=== PATIENT | female | born 1995 ===

== ENCOUNTER 2017-01-12 19:02 | Emergency (ER) | payer OTHER ==
[2017-01-12 19:10] VITALS: RESP 16
[2017-01-12 19:16] VITALS: BP 127/65; PULSE 77; TEMP 98.3; O2SAT 99
[2017-01-12 19:56] LABS: RBC URINE 3 /hpf (0-3); URINE BILIRUBIN NEGATIVE (NEGATIVE); URINE BLOOD NEGATIVE (NEGATIVE); URINE COLOR YELLOW (YELLOW); URINE GLUCOSE (UA) NEG (Normal); URINE KETONE NEGATIVE (NEGATIVE); URINE LEUKOCYTE ESTERASE NEG Leu/uL (Negative); URINE PROTEIN NEGATIVE (NEGATIVE); URINE UROBILINOGEN 0.2-1.0 mg/dL (0.2-1.0); WBC URINE 1 /hpf (0-5)
[2017-01-12 20:02] LABS: BASO # 0.1 K/uL (0.0-0.2); EOS # 0.2 K/uL (0.0-0.7); EOS % 1.8 % (0.0-4.0); HEMATOCRIT 37.5 % (34.0-47.0); LYMPH # 3.7 K/uL (1.0-4.3); LYMPH % 38.3 % (20.0-40.0); MEAN CORPUSCULAR HEMOGLOBIN 26.3 pg (27.0-31.0); MEAN CORPUSCULAR HGB CONC 31.7 g/dL (33.0-37.0); MEAN PLATELET VOLUME 7.8 fl (7.2-11.7); MONO # 0.7 K/uL (0.0-0.8); MONO % 7.3 % (0.0-10.0); NEUT % 51.6 % (50.0-75.0); RED CELL DISTRIBUTION WIDTH 14.4 % (11.5-14.5); WHITE BLOOD COUNT 9.7 K/uL (4.8-10.8)
[2017-01-12] MEDS: Sodium Chloride 0.9% 1,000 ML IV STA (20:07)
[2017-01-12 20:13] LABS: ALB/GLOB RATIO 1.3 (1.0-2.1); ALKALINE PHOSPHATASE 75 U/L (38-126); ALT/SGPT 34 U/L (9-52); AST/SGOT 53 U/L (14-36); BILIRUBIN,TOTAL 0.2 mg/dl (0.2-1.3); BLOOD UREA NITROGEN 15 mg/dl (7-17); CALCIUM 9.4 mg/dL (8.4-10.2); CARBON DIOXIDE 28 mmol/L (22-30); CHLORIDE 103 mmol/L (98-107); GFR AFRICAN-AMERICAN > 60; GLUCOSE,RANDOM 90 mg/dL (65-105); POTASSIUM 4.7 MMOL/L (3.6-5.0); SODIUM 141 mmol/l (132-148); TOTAL PROTEIN 7.7 G/DL (6.3-8.2)
--- NOTE | 2017-01-12 23:41 | ED PDOC ---
HPI: Abdomen Time Seen by Provider: 01/12/17 19:32 Chief Complaint (Nursing): Abdominal Pain Chief Complaint (Provider): pelvic pain, headache History Per: Patient History/Exam Limitations: no limitations Current Symptoms Are (Timing): Still Present Severity: Mild Quality Of Discomfort: Cramping Associated Symptoms: Nausea. denies: Diarrhea, Loss Of Appetite, Urinary Symptoms Last Bowel Movement: Today Additional Complaint(s): 22yo female c/o left pelvic pain and headache ongoing and worsening since wednesday. Denies fever, neck pain, rash or weakness. Denies possibility of being . Denies vaginal discharge. Taking tylenol w some relief. Past Medical History Reviewed: Historical Data, Nursing Documentation, Vital Signs Vital Signs: Last Vital Signs Temp 98.3 F 01/12/17 19:08 Pulse 77 01/12/17 19:08 Resp 16 01/12/17 19:08 BP 127/65 01/12/17 19:08 Pulse Ox 99 01/12/17 19:08 - Medical History PMH: Asthma, Hypercholesterolemia - Surgical History Surgical History: Tonsillectomy - Family History Family History: States: Unknown Family Hx - Living Arrangements Living Arrangements: With Family - Social History Current smoker - smoking cessation education provided: No - Immunization History Hx Tetanus Toxoid Vaccination: No Hx Influenza Vaccination: Yes Hx Pneumococcal Vaccination: No - Home Medications Home Medications: Ambulatory Orders Medication Instructions Recorded Naproxen [Naprosyn] 500 mg PO Q12H #20 tab 10/13/16 - Allergies Allergies/Adverse Reactions: Allergies Allergy/AdvReac Type Severity Reaction Status Date / Time No Known Allergies Allergy Verified 01/12/17 19:08 Review of Systems Constitutional: Negative for: Fever Cardiovascular: Negative for: Chest Pain, Palpitations Respiratory: Negative for: Cough, Shortness of Breath Gastrointestinal: Negative for: Nausea, Vomiting Genitourinary Female: Positive for: Vaginal Bleeding, Pelvic Pain. Negative for : Dysuria, Frequency Musculoskeletal: Negative for: Shoulder Pain, Back Pain, Leg Pain Skin: Negative for: Rash, Lesions Neurological: Negative for: Weakness, Numbness, Dizziness Physical Exam - Reviewed Nursing Documentation Reviewed: Yes Vital Signs Reviewed: Yes - Physical Exam Appears: Positive for: Well, Non-toxic, No Acute Distress Head Exam: Positive for: ATRAUMATIC, NORMAL INSPECTION, NORMOCEPHALIC Skin: Positive for: Normal Color, Warm, DRY Eye Exam: Positive for: EOMI, Normal appearance, PERRL ENT: Positive for: Normal ENT Inspection Neck: Positive for: Normal, Painless ROM Cardiovascular/Chest: Positive for: Regular Rate, Rhythm Respiratory: Positive for: CNT, Normal Breath Sounds Gastrointestinal/Abdominal: Positive for: Bowel Sounds, Soft, Tenderness (mild LLQ tenderness) Back: Positive for: Normal Inspection Extremity: Positive for: Normal ROM Neurologic/Psych: Positive for: Alert, Oriented - Laboratory Results Result Diagrams: 01/12/17 19:55 01/12/17 19:55 - ECG O2 Sat by Pulse Oximetry: 99 Medical Decision Making Medical Decision Making: Orders placed and therapeutics ordered. US pelvis ordered. Preg neg. Patient was aware needed to go to US, requested IV be taken out of arm per RN as "it was freaking her out". Per RN when he came back to room after removing IV the patient had left, eloped. Vitals were stable on last eval. Disposition - Clinical Impression Clinical Impression: Pelvic pain - Patient ED Disposition Is Patient to be Admitted: No - Disposition Disposition: Eloped Disposition Time: 19:30 Condition: STABLE
== END 2017-01-12 19:55 | disposition left against medical advice (07) ==
LOC: H.ER 19:02
DX: R10.2 Pelvic and perineal pain (principal); R11.0 Nausea; E78.00 Pure hypercholesterolemia, unspecified; J45.909 Unspecified asthma, uncomplicated; R51 Headache

== ENCOUNTER 2017-09-20 18:36 | Emergency (ER) | payer OTHER ==
[2017-09-20 19:08] VITALS: BP 130/85; PULSE 93; RESP 18; TEMP 98.8; O2SAT 99
[2017-09-20 22:14] LABS: BASO # 0.1 K/uL (0.0-0.2); BASO % 0.8 % (0.0-2.0); EOS # 0.3 K/uL (0.0-0.7); EOS % 2.1 % (0.0-4.0); HEMOGLOBIN 12.7 g/dL (12.0-16.0); LYMPH # 3.8 K/uL (1.0-4.3); LYMPH % 30.6 % (20.0-40.0); MEAN CELL VOLUME 84.1 fl (81.0-99.0); MEAN CORPUSCULAR HEMOGLOBIN 26.2 pg (27.0-31.0); MEAN CORPUSCULAR HGB CONC 31.2 g/dL (33.0-37.0); MEAN PLATELET VOLUME 8.3 fl (7.2-11.7); MONO # 0.9 K/uL (0.0-0.8); MONO % 7.4 % (0.0-10.0); NEUT # 7.3 K/uL (1.8-7.0); NEUT % 59.1 % (50.0-75.0); RBC 4.84 Mil/uL (3.80-5.20); RED CELL DISTRIBUTION WIDTH 14.6 % (11.5-14.5); WHITE BLOOD COUNT 12.4 K/uL (4.8-10.8)
[2017-09-20 22:28] LABS: CALCIUM 9.5 mg/dL (8.4-10.2); GFR AFRICAN-AMERICAN > 60; GFR NON-AFRICAN AMERICAN > 60
[2017-09-20 22:29] LABS: ALB/GLOB RATIO 1.2 (1.0-2.1); ALBUMIN 4.3 g/dL (3.5-5.0); ALT/SGPT 28 U/L (9-52); AST/SGOT 39 U/L (14-36); BLOOD UREA NITROGEN 12 mg/dl (7-17)
--- NOTE | 2017-09-20 22:32 | ED PDOC ---
HPI: Female Pain Time Seen by Provider: 09/20/17 21:26 Chief Complaint (Nursing): Abdominal Pain Chief Complaint (Provider): Abdominal Pain/Vaginal discomfort History Per: Patient History/Exam Limitations: no limitations Onset/Duration Of Symptoms: Days (x2) Current Symptoms Are (Timing): Still Present Additional Complaint(s): Marleny Burgos is a 22 year old female with a history of PCOS that presents to the ED with a chief complaint of left lower quadrant abdominal pain and vaginal discomfort that she has been experiencing for the past two days. Patient reports associated poor appetite and nausea, but denies any fever, cough , shortness of breath, chest pain, vomiting, diarrhea, urinary symptoms, or vaginal discharge. She states that her menstrual period is late, but that she has a history of irregular menstrual cycles. Past Medical History Reviewed: Historical Data, Nursing Documentation, Vital Signs Vital Signs: Last Vital Signs Temp 98.8 F 09/20/17 19:06 Pulse 93 H 09/20/17 19:06 Resp 18 09/20/17 19:06 BP 130/85 09/20/17 19:06 Pulse Ox 99 09/20/17 19:06 - Medical History PMH: Asthma, Hypercholesterolemia Other PMH: PCOS - Surgical History Surgical History: No Surg Hx, Tonsillectomy - Family History Family History: States: Unknown Family Hx - Social History Current smoker - smoking cessation education provided: No Alcohol: None Drugs: Denies - Immunization History Hx Tetanus Toxoid Vaccination: No Hx Influenza Vaccination: Yes Hx Pneumococcal Vaccination: No - Home Medications Home Medications: Ambulatory Orders Medication Instructions Recorded Naproxen [Naprosyn] 500 mg PO Q12H #20 tab 10/13/16 - Allergies Allergies/Adverse Reactions: Allergies Allergy/AdvReac Type Severity Reaction Status Date / Time No Known Allergies Allergy Verified 09/20/17 19:05 Review of Systems Constitutional: Positive for: Other (Decreased appetite). Negative for: Fever Cardiovascular: Negative for: Chest Pain Respiratory: Negative for: Cough, Shortness of Breath Gastrointestinal: Positive for: Nausea, Abdominal Pain. Negative for: Vomiting , Diarrhea Genitourinary Female: Positive for: Other (Vaginal irritation). Negative for: Dysuria, Frequency, Incontinence, Hematuria, Vaginal Discharge Physical Exam - Reviewed Nursing Documentation Reviewed: Yes Vital Signs Reviewed: Yes - Physical Exam Appears: Positive for: Non-toxic, No Acute Distress Head Exam: Positive for: ATRAUMATIC, NORMOCEPHALIC Skin: Positive for: Normal Color, Warm Eye Exam: Positive for: Normal appearance, EOMI, PERRL Neck: Positive for: Normal, Supple Cardiovascular/Chest: Positive for: Regular Rate, Rhythm. Negative for: Murmur Respiratory: Positive for: Normal Breath Sounds. Negative for: Wheezing Gastrointestinal/Abdominal: Positive for: Tenderness (mild LLQ TTP). Negative for: Normal Exam Back: Positive for: Normal Inspection. Negative for: L CVA Tenderness, R CVA Tenderness Extremity: Positive for: Normal ROM. Negative for: Deformity, Swelling Neurologic/Psych: Positive for: Alert, Oriented. Negative for: Motor/Sensory Deficits - Laboratory Results Result Diagrams: 09/20/17 22:10 09/20/17 22:10 - ECG O2 Sat by Pulse Oximetry: 99 (RA) Pulse Ox Interpretation: Normal Medical Decision Making Medical Decision Making: Impression: 22 year old female with LLQ pain in setting of known PCOS Plan: * US Transvaginal * Urinalysis * Urine dip * Urine preg * Reevaluation 2320 US FINDINGS Uterus/cervix: The uterus measures 6.2 x 2.5 x 3.1 cm and is normal in contour and echotexture. Normal endometrial stripe thickness measuring 6 mm. No myometrial mass. Right ovary: Unremarkable measuring 2.0 x 1.6 x 2.5 cm. No mass. Normal blood flow. Left ovary: Unremarkable measuring 2.6 x 1.9 x 2.9 cm. No mass. Normal blood flow. Free fluid: No free fluid. Bladder: Empty bladder which cannot be evaluated with this probe. IMPRESSION: Unremarkable pelvic ultrasound. 2340 Labs reviewed: no clinically significant abnormality Labs and US findings explained to patient, who will follow up with her rn interventional later this week. Dx: abdominal pain Condition: stable Scribe Attestation: Documented by Joann Pizano and Rayne Martinez, acting as a scribe for Tushar Adams MD. Provider Scribe Attestation: All medical record entries made by the Scribe were at my direction and personally dictated by me. I have reviewed the chart and agree that the record accurately reflects my personal performance of the history, physical exam, medical decision making, and the department course for this patient. I have also personally directed, reviewed, and agree with the discharge instructions and disposition. Disposition - Clinical Impression Clinical Impression: Abdominal pain - Disposition Disposition: Routine/Home Disposition Time: 23:40 Condition: STABLE Instructions: Abdominal Pain (ED) Forms: [facility] (Kiswahili)
[2017-09-20 22:39] LABS: SQUAMOUS EPITHIAL 5 /hpf (0-5); URINE BACTERIA RARE (<OCC); URINE BILIRUBIN NEGATIVE (NEGATIVE); URINE BLOOD NEGATIVE (NEGATIVE); URINE CLARITY SLIGHTY-CLOUDY (Clear); URINE COLOR YELLOW (YELLOW); URINE GLUCOSE (UA) NEG (Normal); URINE LEUKOCYTE ESTERASE NEG Leu/uL (Negative); URINE NITRATE NEGATIVE (NEGATIVE); URINE PROTEIN NEGATIVE (NEGATIVE)
--- NOTE | 2017-09-20 23:20 | US ---
EXAM: US Pelvis, Transvaginal CLINICAL HISTORY: 22 years old, female; Pain; Pelvic pain; Additional info: Llq pain HX pcos TECHNIQUE: Real-time transvaginal pelvic ultrasound (complete) with image documentation. Transvaginal imaging was used for better evaluation of the endometrium and adnexa. COMPARISON: No relevant prior studies available. FINDINGS: Uterus/cervix: The uterus measures 6.2 x 2.5 x 3.1 cm and is normal in contour and echotexture. Normal endometrial stripe thickness measuring 6 mm. No myometrial mass. Right ovary: Unremarkable measuring 2.0 x 1.6 x 2.5 cm. No mass. Normal blood flow. Left ovary: Unremarkable measuring 2.6 x 1.9 x 2.9 cm. No mass. Normal blood flow. Free fluid: No free fluid. Bladder: Empty bladder which cannot be evaluated with this probe. IMPRESSION: Unremarkable pelvic ultrasound.
== END 2017-09-21 00:11 | disposition home or self-care (01) ==
LOC: H.ER 18:36
DX: R10.32 Left lower quadrant pain (principal); E28.2 Polycystic ovarian syndrome; E78.00 Pure hypercholesterolemia, unspecified; J45.909 Unspecified asthma, uncomplicated

== ENCOUNTER 2018-07-27 16:42 | Emergency (ER) | payer MEDICAID, OTHER ==
[2018-07-27 16:49] VITALS: BP 121/77; PULSE 91; RESP 16; TEMP 98; O2SAT 100
[2018-07-27 18:12] LABS: BASO # 0.1 K/uL (0.0-0.2); BASO % 0.7 % (0.0-2.0); EOS # 0.4 K/uL (0.0-0.7); EOS % 3.6 % (0.0-4.0); HEMOGLOBIN 12.6 g/dL (12.0-16.0); LYMPH # 3.9 K/uL (1.0-4.3); MEAN CELL VOLUME 83.2 fl (81.0-99.0); MEAN CORPUSCULAR HEMOGLOBIN 26.7 pg (27.0-31.0); MEAN CORPUSCULAR HGB CONC 32.1 g/dL (33.0-37.0); MONO # 0.9 K/uL (0.0-0.8); MONO % 7.8 % (0.0-10.0); NEUT # 5.8 K/uL (1.8-7.0); NEUT % 52.9 % (50.0-75.0); RBC 4.73 Mil/uL (3.80-5.20)
[2018-07-27 18:14] LABS: ALB/GLOB RATIO 1.3 (1.0-2.1); ALBUMIN 4.5 g/dL (3.5-5.0); ALT/SGPT 227 U/L (9-52); AST/SGOT 138 U/L (14-36); BLOOD UREA NITROGEN 11 mg/dl (7-17); CALCIUM 9.6 mg/dL (8.4-10.2); GFR NON-AFRICAN AMERICAN > 60
--- NOTE | 2018-07-27 18:36 | US ---
Date of service: 07/27/2018 HISTORY: Pelvic pain COMPARISON: None available. TECHNIQUE: Transvaginal pelvic ultrasound was performed. FINDINGS: UTERUS: Measures 7.1 x 3.8 x 3.1 cm. Anteverted, normal in size and appearance. No fibroid or other mass lesion seen. ENDOMETRIUM: Measures 6.0 mm in diameter. Normal in appearance. CERVIX: No cervical abnormality identified. RIGHT OVARY: Measures 3.1 x 3.6 x 2.7 cm. No solid mass. Normal flow. LEFT OVARY: Measures 3.0 x 2.9 x 1.6 cm. No solid mass. Normal flow. FREE FLUID: There is free fluid in the cul de sac, likely physiologic OTHER FINDINGS: None. IMPRESSION: Unremarkable pelvic ultrasound.
--- NOTE | 2018-07-27 19:32 | ED PDOC ---
HPI: Abdomen Time Seen by Provider: 07/27/18 17:38 Chief Complaint (Nursing): Abdominal Pain Chief Complaint (Provider): Suprapubic Pain History Per: Patient History/Exam Limitations: no limitations Onset/Duration Of Symptoms: Days (x2) Current Symptoms Are (Timing): Still Present Additional Complaint(s): 23 year old female presents to the ED for evaluation of suprapubic pain for the past two days which radiates into her left lower quadrant and left lower back. She notes the pain began shortly after intercourse, and reports a history of PCOS. Otherwise, denies dysuria, hematuria, incontinence, fever, nausea, and vomiting. PMD: Yohannes Miller Past Medical History Reviewed: Historical Data, Nursing Documentation, Vital Signs Vital Signs: Last Vital Signs Temp 98.0 F 07/27/18 16:46 Pulse 91 H 07/27/18 16:46 Resp 16 07/27/18 16:46 BP 121/77 07/27/18 16:46 Pulse Ox 100 07/27/18 16:46 - Medical History PMH: Asthma, Hypercholesterolemia Other PMH: PCOS - Surgical History Surgical History: Tonsillectomy Other surgeries: Termination of . bartholin cyst removal - Family History Family History: States: Unknown Family Hx - Social History Current smoker - smoking cessation education provided: No Alcohol: Social Drugs: Denies - Immunization History Hx Tetanus Toxoid Vaccination: No Hx Influenza Vaccination: Yes Hx Pneumococcal Vaccination: No - Home Medications Home Medications: Ambulatory Orders Medication Instructions Recorded Naproxen [Naprosyn] 500 mg PO Q12H #20 tab 10/13/16 Naproxen [Naprosyn] 500 mg PO BID PRN #10 tab 07/27/18 - Allergies Allergies/Adverse Reactions: Allergies Allergy/AdvReac Type Severity Reaction Status Date / Time No Known Allergies Allergy Verified 07/27/18 16:46 Review of Systems ROS Statement: Except As Marked, All Systems Reviewed And Found Negative Constitutional: Negative for: Fever Gastrointestinal: Positive for: Abdominal Pain (suprapubic radiating to LLQ and left lower back). Negative for: Nausea, Vomiting Genitourinary Female: Negative for: Dysuria, Incontinence, Hematuria Physical Exam - Reviewed Nursing Documentation Reviewed: Yes Vital Signs Reviewed: Yes - Physical Exam Appears: Positive for: No Acute Distress Gastrointestinal/Abdominal: Positive for: Normal Exam, Soft. Negative for: Tenderness Back: Positive for: Normal Inspection. Negative for: L CVA Tenderness, R CVA Tenderness - Laboratory Results Result Diagrams: 07/27/18 17:59 07/27/18 17:59 - ECG O2 Sat by Pulse Oximetry: 100 (RA) Pulse Ox Interpretation: Normal Medical Decision Making Medical Decision Making: Time: 1747 Initial Impression: suprapubic pain in setting of known PCOS Initial Plan: --CMP --U-preg --U-dip --CBC with differential --Chlamydia/ GC RNA, TMA --Toradol 30mg IVP --Transvag US 1831 US FINDINGS: UTERUS: Measures 7.1 x 3.8 x 3.1 cm. Anteverted, normal in size and appearance. No fibroid or other mass lesion seen. ENDOMETRIUM: Measures 6.0 mm in diameter. Normal in appearance. CERVIX: No cervical abnormality identified. RIGHT OVARY: Measures 3.1 x 3.6 x 2.7 cm. No solid mass. Normal flow. LEFT OVARY: Measures 3.0 x 2.9 x 1.6 cm. No solid mass. Normal flow. FREE FLUID: There is free fluid in the cul de sac, likely physiologic OTHER FINDINGS: None. IMPRESSION: Unremarkable pelvic ultrasound. 1930 On reevaluation, patient reports complete relief of pain and advised to follow up with [employer] Mgmt Dev Manager. Scribe Attestation: Documented by Daniela Yeh, acting as a scribe for Julian Saunders PA-C Provider Scribe Attestation: All medical record entries made by the Scribe were at my direction and personally dictated by me. I have reviewed the chart and agree that the record accurately reflects my personal performance of the history, physical exam, medical decision making, and the department course for this patient. I have also personally directed, reviewed, and agree with the discharge instructions and disposition. Disposition - Clinical Impression Clinical Impression: Pelvic pain - Patient ED Disposition Is Patient to be Admitted: No - Disposition [facility] Disposition: Routine/Home Disposition Time: 19:30 Condition: IMPROVED Additional Instructions: FOLLOW UP WITH YOUR OBGYN FOR FURTHER EVALUATION BUT RETURN TO ED IMMEDIATELY IF SYMPTOMS WORSEN ZIA MALCOLM, thank you for letting us take care of you today. Your provider was Huang Gtz III, DO and you were treated for ABD PAIN. The emergency medical care you received today was directed at your acute symptoms. If you were prescribed any medication, please fill it and take as directed. It may take several days for your symptoms to resolve. Return to the Emergency Department if your symptoms worsen, do not improve, or if you have any other problems. Please contact your doctor or call one of the physicians/clinics you have been referred to that are listed on the Patient Visit Information form that is included in your discharge packet. Bring any paperwork you were given at dis charge with you along with any medications you are taking to your follow up visit. Our treatment cannot replace ongoing medical care by a primary care provider outside of the emergency department. Thank you for allowing the [facility] team to be part of your care today. If you had an X-Ray or CT scan: A Radiologist will review the ED reading if any change in treatment is needed we will contact you. If you had a blood, urine, or wound culture: It will take several days for the results, if any change in treatment is needed we will contact you. If you had an STI test: It will take 48 hours for the results. Please call after 1 week if you have not heard back. Prescriptions: Naproxen [Naprosyn] 500 mg PO BID PRN #10 tab PRN Reason: Pain Instructions: Acute Pelvic Pain (DC) Forms: [employer] (Mohawk) Print Language: SOUTH KORE[place]
== END 2018-07-27 19:50 | disposition home or self-care (01) ==
LOC: H.ER 16:42
DX: R10.2 Pelvic and perineal pain (principal); E28.2 Polycystic ovarian syndrome; E78.00 Pure hypercholesterolemia, unspecified
CPT/HCPCS: 76830; 80053; 81025; 85025; 87491; 87591; 96374; 99283; J1885